=== PATIENT | female | born 1975 | race Caucasian/White ===

== ENCOUNTER 2016-11-01 14:48 | Emergency (ER) | payer OTHER ==
[~2016-11-01 14:48] MED LIST: AZIT250T6 PO; GUAI120L35 PO; IBUP800T19 PO
[2016-11-01 14:55] VITALS: BP 128/55
--- NOTE | 2016-11-01 15:44 | RAD ---
Indication pain associated with a fall. AP oblique lateral and sunrise views were obtained. There are some degenerative changes involving the knee. There is mild medial joint space compartment narrowing with some associated sclerosis of the medial tibial plateau. Osteophytes are seen off the lateral compartment. An acute bony finding is not seen. There is some patellofemoral narrowing. IMPRESSION: No acute finding. Degenerative change.
[2016-11-01] MEDS ORDERED: IBUPROFEN 600 MG TABLET. PO ONE (15:45)
--- NOTE | 2016-11-01 15:52 | PHYS DOC ---
Past History Past Medical History: Anxiety, Hypertension Past Surgical History: Cholecystectomy, , Tonsillectomy Alcohol Use: None Drug Use: None Adult General Chief Complaint Chief Complaint: KNEE INJURY HPI HPI Patient is a 40 year old female who presents with knee pain. Shortly prior to arrival patient was walking and twisted her left knee. She states she lost her balance and had to be caught by her boyfriend but she did not fall to the ground. She has pain with weightbearing now. Denies any other injuries. Denies previous knee injury or surgery. No treatments attempted prior to arrival. Review of Systems Review of Systems Constitutional: Denies fever or chills HENT: Denies nasal congestion or sore throat Respiratory: Denies cough or shortness of breath Cardiovascular: Denies chest pain GI: Denies abdominal pain, nausea, vomiting Musculoskeletal: Reports knee pain Integument: Denies rash Neurologic: Denies headache Current Medications Current Medications Current Medications Medications (Trade) Dose Ordered Sig/Aundrea Start Time Stop Time Status Last Admin Dose Admin Ibuprofen (Motrin) 600 mg 1X ONCE 11/01/16 15:45 11/01/16 15:46 DC 11/01/16 15:34 600 MG Allergies Allergies Allergies Coded Allergies Type Severity Reaction Last Updated Verified amoxicillin Allergy Intermediate 01/11/16 Yes latex Allergy Unknown 01/11/16 Yes promethazine Allergy Unknown 01/11/16 Yes Physical Exam Physical Exam Constitutional: morbidly obese, no acute distress, non-toxic appearance. HENT: Normocephalic, atraumatic, bilateral external ears normal, oropharynx moist, nose normal. Eyes: conjunctiva normal, no discharge. Cardiovascular: no edema. Lungs & Thorax: no respiratory distress. Abdomen: nondistended. Skin: Warm, dry, no erythema, no rash. Extremities: left knee no definite swelling or deformity, tender to lateral joint line & inferior to patella. able to demonstrate flexion/extension though limited by pain & body habitus. no ankle or hip tenderness, intact straight leg raise. negative anterior/posterior drawer, stable to valgus/varus stress. dp/pt 2+, sensation intact to foot. Neurologic: Alert and oriented X 3 Current Patient Data Vital Signs Vital Signs Date Time Temp Pulse Resp B/P (MAP) Pulse Ox O2 Delivery O2 Flow Rate FiO2 11/01/16 14:55 72 22 98 Room Air EKG EKG [] Radiology/Procedures Radiology/Procedures PROCEDURE: KNEE LEFT 4V Indication pain associated with a fall. AP oblique lateral and sunrise views were obtained. There are some degenerative changes involving the knee. There is mild medial joint space compartment narrowing with some associated sclerosis of the medial tibial plateau. Osteophytes are seen off the lateral compartment. An acute bony finding is not seen. There is some patellofemoral narrowing. IMPRESSION: No acute finding. Degenerative change. DICTATED AND SIGNED BY: ZAHEER VALENCIA MD DATE: 11/01/16 1539 [] Course & Med Decision Making Course & Med Decision Making Pertinent Labs and Imaging studies reviewed. (See chart for details) The patient presents with knee pain. Gave ibuprofen. X-ray negative for fracture or dislocation. Counseled regarding supportive care for likely sprain. Recommend rest, ice, elevation, compression with arik wrap which we provided here, ibuprofen or naproxen for pain. Recommended weight loss & exercise; she had a lot of questions & misunderstandings so attempted to rehabilitation services counselor with simple steps to start weight loss. Follow up with primary care physician for ongoing assistance with nutrition & exercise, follow up as needed in ortho clinic in 1-2 weeks for ongoing knee pain. Return for neurovascular compromise or otherwise worsening condition. Discharged home in stable condition. [] Dragon Disclaimer Dragon Disclaimer This chart was dictated in whole or in part using Voice Recognition software in a busy, high-work load, and often noisy Emergency Department environment. It may contain unintended and wholly unrecognized errors or omissions. Departure Departure: Impression: Primary Impression: Knee sprain Disposition: HOME, SELF-CARE Condition: STABLE Referrals: PCP,NO (PCP) [facility] Patient Instructions: Knee Pain, [id number] Additional Instructions: You were seen in the emergency department for knee injury. The x-ray did not show a broken bone. Please rest, ice, elevate, wear arik wrap, take ibuprofen 600 mg every 8 hours for pain & swelling. Follow up as needed in 1-2 weeks with a primary care doctor or in the orthopedic clinic. VAL RODRIGUEZ MD Nov 01, 2016 15:52
== END 2016-11-01 16:10 | disposition home or self-care (01) ==
LOC: ER 14:48
DX: S83.92XA Sprain of unspecified site of left knee, initial encounter (principal); I10 Essential (primary) hypertension; Z88.8 Allergy status to other drugs, medicaments and biological substances; Z88.1 Allergy status to other antibiotic agents; Z91.040 Latex allergy status; X58.XXXA Exposure to other specified factors, initial encounter; Y93.01 Activity, walking, marching and hiking; Y99.8 Other external cause status; Y92.89 Other specified places as the place of occurrence of the external cause
CPT/HCPCS: 73564; 99284